=== PATIENT | male | born 1960 | race Two or more races ===

== ENCOUNTER 2017-11-14 22:26 | Inpatient (IN) | payer MEDICAID ==
[~2017-11-14] VITALS: Ht 162.6 cm; Wt 58.1 kg
[2017-11-14] MEDS ORDERED: FURO20TA3 PO (23:15)
[2017-11-14] MEDS ORDERED: PANT40TA5 PO (23:15)
[2017-11-14] MEDS ORDERED: CARV3.1212 PO (23:15)
[2017-11-14] MEDS ORDERED: lisinopril PO (23:15)
[2017-11-14 23:48] LABS: BASOPHILS # (AUTO) 0.01 x10^3/uL (0-0.1); BASOPHILS % (AUTO) 0 % (0-1); EOSINOPHILS # (AUTO) 0.06 x10^3/uL (0-0.4); EOSINOPHILS % (AUTO) 1 % (1-7); LYMPHOCYTES # (AUTO) 0.88 x10^3/uL (1-3.4); LYMPHOCYTES % (AUTO) 14 % (22-44); MD NO; MEAN CORPUSCULAR HEMOGLOBIN 28.2 pg (27.5-34.5); MEAN CORPUSCULAR HGB CONC 32.5 g/dL (33.2-36.2); MEAN CORPUSCULAR VOLUME 86.5 fL (81-97); MEAN PLATELET VOLUME 7.9 fL (7.4-10.4); MONOCYTES # (AUTO) 0.45 x10^3/uL (0.2-0.8); MONOCYTES % (AUTO) 7 % (2-9); NEUTROPHILS # (AUTO) 4.77 x10^3/uL (1.8-6.8); NEUTROPHILS % (AUTO) 77 % (42-75); PLATELET COUNT 158 x10^3/uL (130-400); RED BLOOD COUNT 4.51 x10^6/uL (4.38-5.82); RED CELL DISTRIBUTION WIDTH 18.3 % (9.4-14.8)
[2017-11-14 23:58] LABS: INTERNATIONAL NORMALIZED RATIO 1.32 (0.93-1.1); PROTHROMBIN TIME 13.7 Seconds (9.6-11.5)
[2017-11-14 23:59] LABS: ALANINE AMINOTRANSFERASE 28 U/L (12-78); ALBUMIN 3.6 g/dL (3.4-5.0); ANION GAP 7 mmol/L (5-15); CALCIUM 8.7 mg/dL (8.5-10.1); CHLORIDE 107 mmol/L (98-107); CREATININE 0.95 mg/dL (0.7-1.3)
[2017-11-15 00:03] LABS: ALKALINE PHOSPHATASE 110 U/L (45-117); BILIRUBIN,TOTAL 2.2 mg/dL (0.2-1.0); T4 (THYROXINE) 7.8 mcg/dL (4.5-12.1); TOTAL PROTEIN 6.7 g/dL (6.4-8.2)
[2017-11-15 00:06] LABS: TROPONIN I 0.471 ng/mL (0.000-0.045)
[2017-11-15] MEDS ORDERED: ASPIRIN 325 MG TABLET PO ONE (00:30)
[2017-11-15] MEDS ORDERED: ASPIRIN 325 MG TABLET ONE (00:38)
[2017-11-15] MEDS ORDERED: FUROSEMIDE 20 MG/2 ML IV ONE (01:00)
[2017-11-15] MEDS ORDERED: FUROSEMIDE 20 MG/2 ML ONE (01:26)
[2017-11-15] MEDS ORDERED: POLYETHYLENE GLYCOL 17 GM PACKET PO PRN (02:30)
[2017-11-15] MEDS ORDERED: BISACODYL 10 MG SUPP PR PRN (02:30)
[2017-11-15] MEDS ORDERED: LABETALOL 5MG/ML, 20ML IVPush PRN (02:30)
[2017-11-15] MEDS ORDERED: GABAPENTIN 300 MG CAPSULE PO PRN (02:30)
[2017-11-15] MEDS ORDERED: hydrALAzine 20 MG/ML, 1ML IVPush PRN (02:30)
[2017-11-15] MEDS ORDERED: ACETAMINOPHEN 325 MG TABLET PO PRN (02:30)
[2017-11-15] MEDS ORDERED: NITROGLYCERIN 0.4 MG BOTTLE (25 TABS) SL PRN (02:30)
[2017-11-15] MEDS ORDERED: FUROSEMIDE 20 MG/2 ML IV SCH (02:30)
[2017-11-15] MEDS ORDERED: DOCUSATE 100 MG CAPSULE PO PRN (02:30)
[2017-11-15 02:31] VITALS: BP 113/74
[2017-11-15 02:46] LABS: HEMOGLOBIN A1C 6.4 % (4.2-6.3)
[2017-11-15 02:59] LABS: FREE T4 (FREE THYROXINE) 1.19 ng/dL (0.76-1.46)
[2017-11-15] MEDS: HEPARIN 5,000 UNITS/ML, 1ML SQ SCH ×3 (03:27→17:22)
[2017-11-15] MEDS: NICOTINE 7 MG/24 HR PATCH.TD24 TD SCH (03:27)
[2017-11-15] MEDS ORDERED: ALBUTEROL SULFATE 2.5 MG/3 ML NPPB PRN (05:30)
[2017-11-15] MEDS: ASPIRIN 325 MG TABLET EC PO SCH (05:44)
[2017-11-15 05:48] LABS: TROPONIN I 0.432 ng/mL (0.000-0.045)
[2017-11-15 07:12] VITALS: BP 109/69
[2017-11-15] MEDS ORDERED: MAGNESIUM SULFATE PMX 2GM/50ML 50 ML IV ONE (08:00)
[2017-11-15] MEDS: FLUTICASONE/VILANTEROL 200-25MCG/INH INH SCH (09:00)
[2017-11-15] MEDS ORDERED: LISINOPRIL 5 MG TABLET PO SCH (09:00)
[2017-11-15] MEDS: FUROSEMIDE 20 MG/2 ML IV SCH ×2 (09:25→17:22)
[2017-11-15] MEDS: PANTOPROZOLE 40MG TABLET PO SCH (09:25)
[2017-11-15] MEDS: CARVEDILOL 3.125 MG TABLET PO SCH ×2 (09:26→21:01)
[2017-11-15] MEDS ORDERED: POTASSIUM CHLORIDE 20 MEQ TAB.ER.PRT PO ONE (11:00)
[2017-11-15 11:28] LABS: TROPONIN I 0.468 ng/mL (0.000-0.045)
[2017-11-15 19:06] VITALS: BP 103/77
[2017-11-15] MEDS ORDERED: ATORVASTATIN 40 MG TABLET PO SCH (21:00)
[2017-11-15] MEDS: LISINOPRIL 5 MG TABLET PO SCH (21:00)
[2017-11-16 02:05] VITALS: BP 105/66
[2017-11-16] MEDS: HEPARIN 5,000 UNITS/ML, 1ML SQ SCH ×2 (03:08→10:13)
[2017-11-16] MEDS: NICOTINE 7 MG/24 HR PATCH.TD24 TD SCH (03:09)
[2017-11-16 05:09] LABS: BASOPHILS # (AUTO) 0.04 x10^3/uL (0-0.1); BASOPHILS % (AUTO) 1 % (0-1); EOSINOPHILS # (AUTO) 0.09 x10^3/uL (0-0.4); EOSINOPHILS % (AUTO) 3 % (1-7); LYMPHOCYTES # (AUTO) 0.93 x10^3/uL (1-3.4); LYMPHOCYTES % (AUTO) 25 % (22-44); MD NO; MEAN CORPUSCULAR HEMOGLOBIN 27.5 pg (27.5-34.5); MEAN CORPUSCULAR HGB CONC 32.1 g/dL (33.2-36.2); MEAN CORPUSCULAR VOLUME 85.6 fL (81-97); MEAN PLATELET VOLUME 8.3 fL (7.4-10.4); MONOCYTES # (AUTO) 0.25 x10^3/uL (0.2-0.8); MONOCYTES % (AUTO) 7 % (2-9); NEUTROPHILS # (AUTO) 2.45 x10^3/uL (1.8-6.8); NEUTROPHILS % (AUTO) 65 % (42-75); PLATELET COUNT 154 x10^3/uL (130-400); RED BLOOD COUNT 4.62 x10^6/uL (4.38-5.82); RED CELL DISTRIBUTION WIDTH 18.5 % (9.4-14.8)
[2017-11-16 05:11] LABS: ALBUMIN 3.4 g/dL (3.4-5.0); ANION GAP 8 mmol/L (5-15); CALCIUM 8.6 mg/dL (8.5-10.1); CHLORIDE 104 mmol/L (98-107)
[2017-11-16 05:14] LABS: ALANINE AMINOTRANSFERASE 26 U/L (12-78); ALKALINE PHOSPHATASE 110 U/L (45-117); BILIRUBIN,TOTAL 1.5 mg/dL (0.2-1.0); CHOL/HDL RATIO 5.3; CHOLESTEROL, TOTAL 117 mg/dL (140-239); CREATININE 0.89 mg/dL (0.7-1.3); HDL CHOL % 19 % (26-37); HDL CHOLESTEROL (DIRECT) 22 mg/dL (40-60); LDL CHOLESTEROL,CALCULATED 82 mg/dL (54-169); LDL/HDL RATIO 3.7 (0.5-3.0); TOTAL PROTEIN 6.7 g/dL (6.4-8.2); TRIGLYCERIDES 65 mg/dL (50-200); VLDL CHOLESTEROL 13 mg/dL (0-25)
[2017-11-16] MEDS: ASPIRIN 325 MG TABLET EC PO SCH (06:19)
[2017-11-16 07:27] VITALS: BP 99/66
[2017-11-16] MEDS: FLUTICASONE/VILANTEROL 200-25MCG/INH INH SCH (09:00)
[2017-11-16] MEDS: LISINOPRIL 5 MG TABLET PO SCH (10:13)
[2017-11-16] MEDS: FUROSEMIDE 20 MG/2 ML IV SCH (10:13)
[2017-11-16] MEDS: PANTOPROZOLE 40MG TABLET PO SCH (10:13)
[2017-11-16] MEDS: CARVEDILOL 3.125 MG TABLET PO SCH (10:13)
== END 2017-11-16 11:16 | disposition left against medical advice (07) | DRG 292 ==
LOC: ED 23:31 → EDIP 11-15 01:32 → 5SO 11-15 02:13
PROVIDERS: ADMIT Internal Medicine; ATTEND Internal Medicine
DX: I11.0 Hypertensive heart disease with heart failure (principal); J96.10 Chronic respiratory failure, unspecified whether with hypoxia or hypercapnia; E78.5 Hyperlipidemia, unspecified; I50.23 Acute on chronic systolic (congestive) heart failure; E87.6 Hypokalemia; F17.210 Nicotine dependence, cigarettes, uncomplicated; I25.10 Atherosclerotic heart disease of native coronary artery without angina pectoris; M54.9 Dorsalgia, unspecified; I25.5 Ischemic cardiomyopathy; J44.9 Chronic obstructive pulmonary disease, unspecified; K21.9 Gastro-esophageal reflux disease without esophagitis; K80.20 Calculus of gallbladder without cholecystitis without obstruction; Z51.5 Encounter for palliative care; Z79.82 Long term (current) use of aspirin; Z82.49 Family history of ischemic heart disease and other diseases of the circulatory system; Z95.1 Presence of aortocoronary bypass graft; I25.2 Old myocardial infarction; Z95.5 Presence of coronary angioplasty implant and graft; Z95.810 Presence of automatic (implantable) cardiac defibrillator; Z99.81 Dependence on supplemental oxygen; Z79.899 Other long term (current) drug therapy
CPT/HCPCS: 36415; 72072; 72110; J7613; 70450; 71045; 71260; 76700; 80053; 80061; 83036; 83735; 83880; 84436; 84439; 84443; 84484; 85025; 85610; 85730; 93005; 94640; 96374; C8929; G0378; J1644; J1940; J3475

== ENCOUNTER 2017-11-16 17:13 | Inpatient (IN) | payer MEDICAID ==
[~2017-11-16] VITALS: Ht 162.6 cm; Wt 60.7 kg
[~2017-11-16 17:13] MED LIST: CARV3.1212 PO; FURO20TA3 PO; PANT40TA5 PO; lisinopril PO
[2017-11-16] MEDS ORDERED: ASPIRIN 81 MG TABLET CHEW PO ONE (17:30)
[2017-11-16] MEDS ORDERED: SODIUM CHLORIDE 0.9% 1,000ML IVBOLUS ONE (17:30)
[2017-11-16] MEDS ORDERED: ASPIRIN 81 MG TABLET CHEW ONE (17:55)
[2017-11-16 18:11] LABS: ALBUMIN 3.8 g/dL (3.4-5.0); ANION GAP 8 mmol/L (5-15); CALCIUM 9.1 mg/dL (8.5-10.1); CHLORIDE 101 mmol/L (98-107)
[2017-11-16 18:13] LABS: BASOPHILS # (AUTO) 0.03 x10^3/uL (0-0.1); BASOPHILS % (AUTO) 1 % (0-1); EOSINOPHILS # (AUTO) 0.06 x10^3/uL (0-0.4); EOSINOPHILS % (AUTO) 1 % (1-7); LYMPHOCYTES # (AUTO) 0.62 x10^3/uL (1-3.4); LYMPHOCYTES % (AUTO) 13 % (22-44); MD NO; MEAN CORPUSCULAR HGB CONC 32.2 g/dL (33.2-36.2); MEAN CORPUSCULAR VOLUME 86.8 fL (81-97); MEAN PLATELET VOLUME 8.2 fL (7.4-10.4); MONOCYTES # (AUTO) 0.31 x10^3/uL (0.2-0.8); MONOCYTES % (AUTO) 6 % (2-9); NEUTROPHILS # (AUTO) 3.91 x10^3/uL (1.8-6.8); NEUTROPHILS % (AUTO) 79 % (42-75); PLATELET COUNT 168 x10^3/uL (130-400); RED BLOOD COUNT 4.77 x10^6/uL (4.38-5.82); RED CELL DISTRIBUTION WIDTH 18.4 % (9.4-14.8)
[2017-11-16 18:16] LABS: CREATININE 1.15 mg/dL (0.7-1.3)
[2017-11-16 18:22] LABS: TROPONIN I 0.453 ng/mL (0.000-0.045)
[2017-11-16] MEDS ORDERED: LIDODERM 5% PATCH TD PRN (21:00)
[2017-11-16] MEDS ORDERED: NITROGLYCERIN 0.4 MG BOTTLE (25 TABS) SL PRN (21:00)
[2017-11-16] MEDS ORDERED: ACETAMINOPHEN 325 MG TABLET PO PRN (21:00)
[2017-11-16] MEDS ORDERED: TEMAZEPAM 15 MG CAPSULE PO PRN (21:00)
[2017-11-16] MEDS ORDERED: hydrALAzine 20 MG/ML, 1ML IVPush PRN (21:00)
[2017-11-16 21:56] VITALS: BP 115/80
[2017-11-16] MEDS: POTASSIUM CHLORIDE 20 MEQ TAB.ER.PRT PO SCH (22:54)
[2017-11-16] MEDS: FUROSEMIDE 20 MG TABLET PO SCH (22:54)
[2017-11-16] MEDS: CARVEDILOL 3.125 MG TABLET PO SCH (22:55)
[2017-11-17 00:58] VITALS: BP 113/53
[2017-11-17 01:15] LABS: TROPONIN I 0.432 ng/mL (0.000-0.045)
[2017-11-17 05:05] LABS: BASOPHILS # (AUTO) 0.02 x10^3/uL (0-0.1); BASOPHILS % (AUTO) 1 % (0-1); EOSINOPHILS # (AUTO) 0.08 x10^3/uL (0-0.4); EOSINOPHILS % (AUTO) 2 % (1-7); LYMPHOCYTES # (AUTO) 0.81 x10^3/uL (1-3.4); LYMPHOCYTES % (AUTO) 20 % (22-44); MD NO; MEAN CORPUSCULAR HEMOGLOBIN 27.6 pg (27.5-34.5); MEAN CORPUSCULAR HGB CONC 32.4 g/dL (33.2-36.2); MEAN CORPUSCULAR VOLUME 85.3 fL (81-97); MEAN PLATELET VOLUME 8.4 fL (7.4-10.4); MONOCYTES # (AUTO) 0.31 x10^3/uL (0.2-0.8); MONOCYTES % (AUTO) 8 % (2-9); NEUTROPHILS # (AUTO) 2.88 x10^3/uL (1.8-6.8); NEUTROPHILS % (AUTO) 70 % (42-75); PLATELET COUNT 142 x10^3/uL (130-400); RED BLOOD COUNT 4.48 x10^6/uL (4.38-5.82)
[2017-11-17 05:09] LABS: ANION GAP 6 mmol/L (5-15); CALCIUM 8.2 mg/dL (8.5-10.1); CHLORIDE 108 mmol/L (98-107)
[2017-11-17 06:49] VITALS: BP 101/65
[2017-11-17] MEDS: CARVEDILOL 3.125 MG TABLET PO SCH ×2 (09:00→20:09)
[2017-11-17] MEDS ORDERED: LISINOPRIL 5 MG TABLET PO SCH (09:00)
[2017-11-17] MEDS: FUROSEMIDE 20 MG TABLET PO SCH ×2 (09:00→20:09)
[2017-11-17] MEDS: PANTOPROZOLE 40MG TABLET PO SCH (09:24)
[2017-11-17] MEDS: KETOROLAC 30 MG/1 ML IV PRN ×2 (09:30→20:09)
[2017-11-17 09:32] VITALS: BP 97/66
[2017-11-17] MEDS: POTASSIUM CHLORIDE 20 MEQ TAB.ER.PRT PO SCH (09:32)
[2017-11-17 12:34] VITALS: BP 98/67
[2017-11-17 19:11] VITALS: BP 111/78
[2017-11-17 20:04] VITALS: BP 107/72
[2017-11-18 02:12] VITALS: BP 114/76
[2017-11-18 06:30] VITALS: BP 113/80
[2017-11-18] MEDS: POTASSIUM CHLORIDE 20 MEQ TAB.ER.PRT PO SCH (08:00)
[2017-11-18] MEDS ORDERED: LISINOPRIL 5 MG TABLET PO SCH (09:00)
[2017-11-18] MEDS: CARVEDILOL 3.125 MG TABLET PO SCH (09:09)
[2017-11-18] MEDS: FUROSEMIDE 20 MG TABLET PO SCH (09:09)
[2017-11-18] MEDS: PANTOPROZOLE 40MG TABLET PO SCH (09:09)
[2017-11-18] MEDS: KETOROLAC 30 MG/1 ML IV PRN (10:44)
[2017-11-18] MEDS ORDERED: POTA20TA6 PO (12:49)
[2017-11-18] MEDS ORDERED: LISI5TAB7 PO (12:49)
[2017-11-18] MEDS ORDERED: FURO20TA3 PO (12:49)
[2017-11-18] MEDS ORDERED: CARV3.1212 PO (12:49)
[2017-11-18] MEDS ORDERED: PANT40TA5 PO (12:49)
== END 2017-11-18 17:47 | disposition home or self-care (01) | DRG 292 ==
LOC: SUATTDRO 20:03 → ED 20:04 → EDIP 20:54 → 5SO 22:04
PROVIDERS: ADMIT Hospitalist; ATTEND Family Medicine
DX: I11.0 Hypertensive heart disease with heart failure (principal); I24.8 Other forms of acute ischemic heart disease; I50.23 Acute on chronic systolic (congestive) heart failure; K21.9 Gastro-esophageal reflux disease without esophagitis; J44.9 Chronic obstructive pulmonary disease, unspecified; I25.5 Ischemic cardiomyopathy; F41.9 Anxiety disorder, unspecified; I34.0 Nonrheumatic mitral (valve) insufficiency; Z59.0 Homelessness; Z95.810 Presence of automatic (implantable) cardiac defibrillator; Z95.1 Presence of aortocoronary bypass graft; Z89.9 Acquired absence of limb, unspecified; Z79.82 Long term (current) use of aspirin; I25.2 Old myocardial infarction
CPT/HCPCS: 36415; 71045; 80048; 82040; 83880; 84484; 85025; 93005; 99285; G0378; J1885; J7030

== ENCOUNTER 2017-11-19 16:22 | Inpatient (IN) | payer MEDICAID ==
[~2017-11-19] VITALS: Ht 162.6 cm; Wt 54.4 kg
[~2017-11-19 16:22] MED LIST changes: +LISI5TAB7 PO; +POTA20TA6 PO
[2017-11-19] MEDS ORDERED: SODIUM CHLORIDE FLUSH 10ML SYR IVF ONE (16:30)
[2017-11-19 17:13] LABS: BASOPHILS # (AUTO) 0.02 x10^3/uL (0-0.1); BASOPHILS % (AUTO) 1 % (0-1); EOSINOPHILS # (AUTO) 0.06 x10^3/uL (0-0.4); EOSINOPHILS % (AUTO) 1 % (1-7); LYMPHOCYTES # (AUTO) 0.81 x10^3/uL (1-3.4); LYMPHOCYTES % (AUTO) 21 % (22-44); MD NO; MEAN CORPUSCULAR HEMOGLOBIN 28.3 pg (27.5-34.5); MEAN CORPUSCULAR HGB CONC 32.8 g/dL (33.2-36.2); MEAN CORPUSCULAR VOLUME 86.2 fL (81-97); MEAN PLATELET VOLUME 8.1 fL (7.4-10.4); MONOCYTES # (AUTO) 0.34 x10^3/uL (0.2-0.8); MONOCYTES % (AUTO) 9 % (2-9); NEUTROPHILS # (AUTO) 2.64 x10^3/uL (1.8-6.8); NEUTROPHILS % (AUTO) 68 % (42-75); PLATELET COUNT 159 x10^3/uL (130-400); RED BLOOD COUNT 4.37 x10^6/uL (4.38-5.82); RED CELL DISTRIBUTION WIDTH 17.7 % (9.4-14.8)
[2017-11-19 17:21] LABS: ALBUMIN 3.5 g/dL (3.4-5.0); ANION GAP 10 mmol/L (5-15); CALCIUM 8.7 mg/dL (8.5-10.1); CHLORIDE 108 mmol/L (98-107); CREATININE 0.93 mg/dL (0.7-1.3)
[2017-11-19 17:32] LABS: TROPONIN I 0.428 ng/mL (0.000-0.045)
[2017-11-19] MEDS ORDERED: ASPIRIN 81 MG TABLET CHEW ONE (18:08)
[2017-11-19] MEDS ORDERED: ASPIRIN 81 MG TABLET CHEW PO ONE (18:30)
[2017-11-19] MEDS ORDERED: NITROGLYCERIN 0.4 MG BOTTLE (25 TABS) SL PRN (19:00)
[2017-11-19] MEDS ORDERED: POLYETHYLENE GLYCOL 17 GM PACKET PO PRN (19:00)
[2017-11-19] MEDS ORDERED: BISACODYL 10 MG SUPP PR PRN (19:00)
[2017-11-19] MEDS ORDERED: ONDANSETRON ODT 4 MG PO PRN (19:00)
[2017-11-19 20:05] VITALS: BP 135/93
[2017-11-19] MEDS: FUROSEMIDE 20 MG/2 ML IV SCH (20:28)
[2017-11-19] MEDS: SODIUM CHLORIDE FLUSH 10ML SYR IVF SCH (20:29)
[2017-11-19] MEDS: HEPARIN 5,000 UNITS/ML, 1ML SQ SCH (20:32)
[2017-11-19] MEDS: ATORVASTATIN 40 MG TABLET PO SCH (20:34)
[2017-11-19] MEDS: CARVEDILOL 3.125 MG TABLET PO SCH (20:34)
[2017-11-19] MEDS: NICOTINE 21 MG/24 HR PATCH.TD24 TD SCH (20:35)
[2017-11-19] MEDS: morphine SULFATE 10 MG/ML, 1ML IVPush PRN (20:38)
[2017-11-19] MEDS ORDERED: ALBUTEROL SULFATE 2.5 MG/3 ML NPPB PRN (21:30)
[2017-11-19 23:37] LABS: TROPONIN I 0.448 ng/mL (0.000-0.045)
[2017-11-20 00:19] VITALS: BP 103/69
[2017-11-20] MEDS: HEPARIN 5,000 UNITS/ML, 1ML SQ SCH ×3 (04:20→17:34)
[2017-11-20] MEDS: ASPIRIN 81 MG TABLET EC PO SCH (05:38)
[2017-11-20 05:43] LABS: BASOPHILS # (AUTO) 0.02 x10^3/uL (0-0.1); BASOPHILS % (AUTO) 1 % (0-1); EOSINOPHILS # (AUTO) 0.07 x10^3/uL (0-0.4); EOSINOPHILS % (AUTO) 2 % (1-7); LYMPHOCYTES # (AUTO) 0.79 x10^3/uL (1-3.4); LYMPHOCYTES % (AUTO) 20 % (22-44); MD NO; MEAN CORPUSCULAR HEMOGLOBIN 28.3 pg (27.5-34.5); MEAN CORPUSCULAR HGB CONC 32.8 g/dL (33.2-36.2); MEAN CORPUSCULAR VOLUME 86.5 fL (81-97); MEAN PLATELET VOLUME 8.6 fL (7.4-10.4); MONOCYTES % (AUTO) 8 % (2-9); NEUTROPHILS # (AUTO) 2.85 x10^3/uL (1.8-6.8); NEUTROPHILS % (AUTO) 71 % (42-75); PLATELET COUNT 155 x10^3/uL (130-400); RED BLOOD COUNT 4.32 x10^6/uL (4.38-5.82); RED CELL DISTRIBUTION WIDTH 17.7 % (9.4-14.8)
[2017-11-20 05:48] LABS: ALANINE AMINOTRANSFERASE 24 U/L (12-78); ALBUMIN 3.4 g/dL (3.4-5.0); ANION GAP 9 mmol/L (5-15); CALCIUM 8.7 mg/dL (8.5-10.1); CHLORIDE 103 mmol/L (98-107); CREATININE 0.86 mg/dL (0.7-1.3)
[2017-11-20 05:52] LABS: ALKALINE PHOSPHATASE 102 U/L (45-117); BILIRUBIN,TOTAL 2.1 mg/dL (0.2-1.0); TOTAL PROTEIN 6.3 g/dL (6.4-8.2); TROPONIN I 0.394 ng/mL (0.000-0.045)
[2017-11-20] MEDS: CARVEDILOL 3.125 MG TABLET PO SCH ×2 (07:49→20:52)
[2017-11-20] MEDS: FUROSEMIDE 20 MG/2 ML IV SCH (07:49)
[2017-11-20] MEDS: LISINOPRIL 5 MG TABLET PO SCH (07:49)
[2017-11-20] MEDS: PANTOPROZOLE 40MG TABLET PO SCH (07:49)
[2017-11-20] MEDS: POTASSIUM CHLORIDE 20 MEQ TAB.ER.PRT PO SCH (07:49)
[2017-11-20] MEDS: SENNA/DOCUSATE TABLET PO SCH (07:50)
[2017-11-20] MEDS: SODIUM CHLORIDE FLUSH 10ML SYR IVF SCH ×2 (07:50→20:52)
[2017-11-20 08:42] VITALS: BP 110/77
[2017-11-20 13:20] VITALS: BP 99/62
[2017-11-20] MEDS: FUROSEMIDE 20 MG TABLET PO SCH (16:08)
[2017-11-20 16:10] VITALS: BP 106/73
[2017-11-20] MEDS: ACETAMINOPHEN 325 MG TABLET PO PRN ×2 (16:10→21:00)
[2017-11-20] MEDS: NICOTINE 21 MG/24 HR PATCH.TD24 TD SCH (17:37)
[2017-11-20 20:01] VITALS: BP 94/62
[2017-11-20] MEDS: ATORVASTATIN 40 MG TABLET PO SCH (20:52)
[2017-11-21 02:53] VITALS: BP 100/66
[2017-11-21] MEDS: HEPARIN 5,000 UNITS/ML, 1ML SQ SCH ×3 (03:27→17:50)
[2017-11-21] MEDS: ASPIRIN 81 MG TABLET EC PO SCH (05:48)
[2017-11-21 08:21] VITALS: BP 113/79
[2017-11-21] MEDS: POTASSIUM CHLORIDE 20 MEQ TAB.ER.PRT PO SCH (08:49)
[2017-11-21] MEDS: CARVEDILOL 3.125 MG TABLET PO SCH ×2 (08:50→19:59)
[2017-11-21] MEDS: SODIUM CHLORIDE FLUSH 10ML SYR IVF SCH ×2 (08:50→19:59)
[2017-11-21] MEDS: SENNA/DOCUSATE TABLET PO SCH (08:50)
[2017-11-21] MEDS: LISINOPRIL 5 MG TABLET PO SCH (08:50)
[2017-11-21] MEDS: PANTOPROZOLE 40MG TABLET PO SCH (08:50)
[2017-11-21] MEDS: FUROSEMIDE 20 MG TABLET PO SCH ×2 (08:50→17:50)
[2017-11-21] MEDS: morphine SULFATE 10 MG/ML, 1ML IVPush PRN (08:59)
[2017-11-21 15:06] VITALS: BP 96/60
[2017-11-21] MEDS: NICOTINE 21 MG/24 HR PATCH.TD24 TD SCH (17:50)
[2017-11-21 18:59] VITALS: BP 104/61
[2017-11-21] MEDS: ATORVASTATIN 40 MG TABLET PO SCH (19:59)
[2017-11-21] MEDS ORDERED: METHOCARBAMOL 500 MG TABLET PO ONE (20:30)
[2017-11-22] VITALS (8 sets, daily range): BP systolic 93–115; BP diastolic 60–79
[2017-11-22] MEDS: ACETAMINOPHEN 325 MG TABLET PO PRN (02:20)
[2017-11-22] MEDS: HEPARIN 5,000 UNITS/ML, 1ML SQ SCH ×3 (02:26→19:49)
[2017-11-22] MEDS: ASPIRIN 81 MG TABLET EC PO SCH (06:22)
[2017-11-22] MEDS: LISINOPRIL 5 MG TABLET PO SCH (09:26)
[2017-11-22] MEDS: SENNA/DOCUSATE TABLET PO SCH (09:27)
[2017-11-22] MEDS: CARVEDILOL 3.125 MG TABLET PO SCH ×2 (09:27→19:51)
[2017-11-22] MEDS: PANTOPROZOLE 40MG TABLET PO SCH (09:28)
[2017-11-22] MEDS: SODIUM CHLORIDE FLUSH 10ML SYR IVF SCH ×2 (09:28→19:49)
[2017-11-22] MEDS: POTASSIUM CHLORIDE 20 MEQ TAB.ER.PRT PO SCH (09:28)
[2017-11-22] MEDS: FUROSEMIDE 20 MG TABLET PO SCH ×2 (09:28→17:58)
[2017-11-22] MEDS ORDERED: HYDROcodone/APAP 5/325 TABLET PO PRN ×2 (10:00→12:00)
[2017-11-22] MEDS: NICOTINE 21 MG/24 HR PATCH.TD24 TD SCH (19:48)
[2017-11-22] MEDS: ATORVASTATIN 40 MG TABLET PO SCH (19:51)
[2017-11-23 02:00] VITALS: BP 98/65
[2017-11-23] MEDS: HEPARIN 5,000 UNITS/ML, 1ML SQ SCH ×2 (04:16→12:15)
[2017-11-23] MEDS: ASPIRIN 81 MG TABLET EC PO SCH (05:21)
[2017-11-23 07:12] VITALS: BP 93/63
[2017-11-23 09:02] VITALS: BP 97/61
[2017-11-23 09:37] VITALS: BP 102/67
[2017-11-23] MEDS: POTASSIUM CHLORIDE 20 MEQ TAB.ER.PRT PO SCH (09:37)
[2017-11-23] MEDS: CARVEDILOL 3.125 MG TABLET PO SCH (09:38)
[2017-11-23] MEDS: LISINOPRIL 5 MG TABLET PO SCH (09:38)
[2017-11-23] MEDS: SODIUM CHLORIDE FLUSH 10ML SYR IVF SCH (09:38)
[2017-11-23] MEDS: FUROSEMIDE 20 MG TABLET PO SCH ×2 (09:38→17:33)
[2017-11-23] MEDS: SENNA/DOCUSATE TABLET PO SCH (09:39)
[2017-11-23] MEDS: PANTOPROZOLE 40MG TABLET PO SCH (09:39)
[2017-11-23 13:13] VITALS: BP 104/64
[2017-11-23] MEDS ORDERED: CARV3.1212 PO (15:25)
[2017-11-23] MEDS ORDERED: ATOR40TA78 PO (15:25)
[2017-11-23] MEDS ORDERED: PANT40TA5 PO (15:25)
[2017-11-23] MEDS ORDERED: FURO20TA3 PO (15:25)
[2017-11-23] MEDS ORDERED: POTA20TA6 PO (15:25)
[2017-11-23] MEDS ORDERED: LISI5TAB7 PO (15:25)
[2017-11-23] MEDS ORDERED: ASPI-621 PO (15:25)
== END 2017-11-23 18:47 | disposition home or self-care (01) | DRG 280 ==
LOC: ED 18:00 → EDIP 18:01 → ED 18:01 → 5SO 19:56
PROVIDERS: ADMIT Internal Medicine; ATTEND Internal Medicine
DX: I21.4 Non-ST elevation (NSTEMI) myocardial infarction (principal); I50.23 Acute on chronic systolic (congestive) heart failure; J96.10 Chronic respiratory failure, unspecified whether with hypoxia or hypercapnia; D64.9 Anemia, unspecified; F17.210 Nicotine dependence, cigarettes, uncomplicated; I11.0 Hypertensive heart disease with heart failure; I25.5 Ischemic cardiomyopathy; I44.7 Left bundle-branch block, unspecified; J44.9 Chronic obstructive pulmonary disease, unspecified; K21.9 Gastro-esophageal reflux disease without esophagitis; Z82.49 Family history of ischemic heart disease and other diseases of the circulatory system; Z91.19 Patient's noncompliance with other medical treatment and regimen; Z95.1 Presence of aortocoronary bypass graft; Z95.5 Presence of coronary angioplasty implant and graft; Z95.810 Presence of automatic (implantable) cardiac defibrillator; Z89.202 Acquired absence of left upper limb, unspecified level; Z79.899 Other long term (current) drug therapy
CPT/HCPCS: 36415; 71045; 80048; 80053; 82040; 83880; 84484; 85025; 93005; 99285; G0378; J1644; J1940; J2270

== ENCOUNTER 2017-12-15 17:52 | Inpatient (IN) | payer MEDICAID ==
[~2017-12-15] VITALS: Ht 162.6 cm; Wt 60.5 kg
[~2017-12-15 17:52] MED LIST changes: +ASPI-621 PO; +ATOR40TA78 PO
[2017-12-15 18:25] LABS: BASOPHILS % (AUTO) 0 % (0-1); EOSINOPHILS # (AUTO) 0.01 x10^3/uL (0-0.4); EOSINOPHILS % (AUTO) 0 % (1-7); LYMPHOCYTES # (AUTO) 0.35 x10^3/uL (1-3.4); LYMPHOCYTES % (AUTO) 3 % (22-44); MD NO; MEAN CORPUSCULAR HEMOGLOBIN 28.4 pg (27.5-34.5); MEAN CORPUSCULAR HGB CONC 32.6 g/dL (33.2-36.2); MEAN CORPUSCULAR VOLUME 87.3 fL (81-97); MEAN PLATELET VOLUME 8.1 fL (7.4-10.4); MONOCYTES # (AUTO) 0.54 x10^3/uL (0.2-0.8); MONOCYTES % (AUTO) 4 % (2-9); NEUTROPHILS # (AUTO) 12.51 x10^3/uL (1.8-6.8); NEUTROPHILS % (AUTO) 93 % (42-75); PLATELET COUNT 160 x10^3/uL (130-400); RED BLOOD COUNT 4.83 x10^6/uL (4.38-5.82)
[2017-12-15] MEDS ORDERED: PLEASE ENTER HEIGHT AND WEIGHT MC SCH (18:30)
[2017-12-15] MEDS ORDERED: SODIUM CHLORIDE FLUSH 10ML SYR IVF ONE ×3 (18:30→20:30)
[2017-12-15 18:35] LABS: ALANINE AMINOTRANSFERASE 37 U/L (12-78); ALBUMIN 3.7 g/dL (3.4-5.0); ANION GAP 7 mmol/L (5-15); CALCIUM 8.1 mg/dL (8.5-10.1); CHLORIDE 102 mmol/L (98-107); CREATININE 1.13 mg/dL (0.7-1.3)
[2017-12-15 18:40] LABS: ALKALINE PHOSPHATASE 115 U/L (45-117); TOTAL PROTEIN 6.7 g/dL (6.4-8.2)
[2017-12-15 18:42] LABS: TROPONIN I 0.415 ng/mL (0.000-0.045)
[2017-12-15] MEDS ORDERED: HYDROcodone/APAP 5/325 TABLET PO ONE (19:30)
[2017-12-15] MEDS ORDERED: SODIUM CHLORIDE 0.9% 1,000ML IVBOLUS ONE (19:30)
[2017-12-15] MEDS ORDERED: HYDROcodone/APAP 5/325 TABLET ONE (19:38)
[2017-12-15] MEDS ORDERED: METO25TA4 PO (19:47)
[2017-12-15] MEDS ORDERED: OMNIPAQUE 350 MG/ML, 100ML BOTTLE ONE (20:19)
[2017-12-15] MEDS ORDERED: CEFTRIAXONE PMX 1GM/50ML 50 ML IV ONE (20:30)
[2017-12-15] MEDS ORDERED: CEFTRIAXONE 1,000 MG in SODIUM CHLORIDE 0.9% 50 ML IVPB ONE (20:30)
[2017-12-15] MEDS ORDERED: AZITHROMYCIN 500 MG in SODIUM CHLORIDE 0.9% 250 ML IVPB ONE (20:30)
[2017-12-15] MEDS ORDERED: CEFTRIAXONE PMX 1GM/50ML 50 ML ONE (20:44)
[2017-12-15] MEDS ORDERED: SODIUM CHLORIDE 0.9% 1,000 ML IV SCH (21:48)
[2017-12-15 21:59] VITALS: BP 92/62
[2017-12-15] MEDS ORDERED: VANCOMYCIN PER PHARMACY MC PRN (22:00)
[2017-12-15] MEDS ORDERED: ONDANSETRON 2MG/ML, 2ML IVPush PRN (22:00)
[2017-12-15] MEDS ORDERED: ONDANSETRON ODT 4 MG PO PRN (22:00)
[2017-12-15] MEDS ORDERED: BUTALB/APAP/CAFFEINE 50MG/325MG/40MG PO PRN (22:00)
[2017-12-15] MEDS ORDERED: LEVOFLOXACIN/PMX 500MG/100ML 100 ML IV SCH (22:00)
[2017-12-15] MEDS ORDERED: POLYETHYLENE GLYCOL 17 GM PACKET PO PRN (22:00)
[2017-12-15] MEDS ORDERED: PHARMACOKINETIC CONSULTATION MC ONE (22:30)
[2017-12-15] MEDS ORDERED: PHARMACOKINETIC MONITORING MC PRN (22:30)
[2017-12-15] MEDS: SODIUM CHLORIDE 0.9% 1,000 ML IV SCH (22:50)
[2017-12-15] MEDS: ENOXAPARIN 40 MG/0.4 ML SQ SCH (22:57)
[2017-12-15] MEDS: ATORVASTATIN 40 MG TABLET PO SCH (22:57)
[2017-12-16] MEDS: VANCOMYCIN 1,200 MG in SODIUM CHLORIDE 0.9% 250 ML IV SCH ×2 (00:14→18:05)
[2017-12-16 00:26] VITALS: BP 100/60
[2017-12-16 03:50] LABS: MICROSCOPIC AUTO
[2017-12-16 03:54] LABS: CULTURE INDICATED? NO
[2017-12-16 03:59] LABS: AMPHETAMINE SCREEN, URINE Negative (Negative); BARBITURATE SCREEN, URINE Negative (Negative); BENZODIAZEPINE SCREEN, URINE Negative (Negative); CANNABINOID SCREEN, URINE Negative (Negative); COCAINE SCREEN, URINE Negative (Negative); METHADONE SCREEN, URINE Negative (Negative); OPIATE SCREEN, URINE Positive (Negative)
[2017-12-16] MEDS: ASPIRIN 81 MG TABLET EC PO SCH (05:12)
[2017-12-16 05:23] LABS: MEAN CORPUSCULAR HEMOGLOBIN 28.8 pg (27.5-34.5); MEAN CORPUSCULAR HGB CONC 32.8 g/dL (33.2-36.2); MEAN CORPUSCULAR VOLUME 87.7 fL (81-97); MEAN PLATELET VOLUME 8.4 fL (7.4-10.4); PLATELET COUNT 126 x10^3/uL (130-400); RED BLOOD COUNT 4.35 x10^6/uL (4.38-5.82); RED CELL DISTRIBUTION WIDTH 18.3 % (9.4-14.8)
[2017-12-16 05:27] LABS: ANION GAP 10 mmol/L (5-15); CALCIUM 7.6 mg/dL (8.5-10.1); CHLORIDE 106 mmol/L (98-107)
[2017-12-16 05:35] LABS: CREATININE 1.04 mg/dL (0.7-1.3); TROPONIN I 0.352 ng/mL (0.000-0.045)
[2017-12-16 05:41] LABS: THYROID STIMULATING HORMONE 0.268 mIU/L (0.358-3.740)
[2017-12-16 05:57] LABS: MD YES
[2017-12-16 05:59] LABS: BAND#(MANUAL) 1.39 x10^3/uL; BANDS%(MANUAL) 9 % (0-7); LYMPH#(MANUAL) 0.62 x10^3/uL (1-3.4); LYMPHS% (MANUAL) 4 % (22-44); MONOS#(MANUAL) 0.62 x10^3/uL (0.3-2.7); MONOS% (MANUAL) 4 % (2-9); SEG#(MANUAL) 12.78 x10^3/uL (1.8-6.8); SEGS% (MANUAL) 83 % (42-75)
[2017-12-16 06:00] LABS: <PLATELET ESTIMATE> ADEQUATE; <PLT MORPHOLOGY> NORMAL PLT MORPH; ANISOCYTOSIS 1+; OVALOCYTES 1+
[2017-12-16] MEDS: MAGNESIUM SULFATE 4 GM in SODIUM CHLORIDE 0.9% 100 ML IV ONE ×2 (06:21→06:23)
[2017-12-16 07:18] VITALS: BP 94/60
[2017-12-16] MEDS ORDERED: MAGNESIUM SULFATE PMX 4GM/100M 100 ML IV ONE (09:00)
[2017-12-16] MEDS: PANTOPROZOLE 40MG TABLET PO SCH (11:36)
[2017-12-16 14:14] VITALS: BP_SYST 100; BP_SYST 104; BP_SYST 89; BP_DIAS 57; BP_DIAS 70; BP_DIAS 71
[2017-12-16] MEDS ORDERED: POTASSIUM PHOSPHATE 22 MEQ in SODIUM CHLORIDE 0.9% 500 ML IV ONE (15:30)
[2017-12-16] MEDS ORDERED: ALBUTEROL SULFATE 2.5 MG/3 ML ONE (15:43)
[2017-12-16] MEDS ORDERED: ALBUTEROL SULFATE 2.5 MG/3 ML NPPB PRN (16:00)
[2017-12-16] MEDS: PIPERACILLIN/TAZO/PMX 4.5GM 100 ML IV SCH ×2 (16:41→22:19)
[2017-12-16 19:47] VITALS: BP 99/70
[2017-12-16] MEDS: ATORVASTATIN 40 MG TABLET PO SCH (21:11)
[2017-12-16] MEDS: ENOXAPARIN 40 MG/0.4 ML SQ SCH (21:12)
[2017-12-17 01:00] VITALS: BP 97/63
[2017-12-17] MEDS: PIPERACILLIN/TAZO/PMX 4.5GM 100 ML IV SCH ×4 (04:30→21:50)
[2017-12-17 05:24] LABS: ANION GAP 9 mmol/L (5-15); CALCIUM 8.1 mg/dL (8.5-10.1); CHLORIDE 108 mmol/L (98-107); CREATININE 1.16 mg/dL (0.7-1.3)
[2017-12-17 05:27] LABS: BASOPHILS # (AUTO) 0.04 x10^3/uL (0-0.1); BASOPHILS % (AUTO) 0 % (0-1); EOSINOPHILS # (AUTO) 0.06 x10^3/uL (0-0.4); EOSINOPHILS % (AUTO) 1 % (1-7); LYMPHOCYTES # (AUTO) 0.71 x10^3/uL (1-3.4); LYMPHOCYTES % (AUTO) 8 % (22-44); MD NO; MEAN CORPUSCULAR HEMOGLOBIN 28.1 pg (27.5-34.5); MEAN CORPUSCULAR HGB CONC 32.3 g/dL (33.2-36.2); MEAN PLATELET VOLUME 8.9 fL (7.4-10.4); MONOCYTES # (AUTO) 0.58 x10^3/uL (0.2-0.8); MONOCYTES % (AUTO) 6 % (2-9); NEUTROPHILS # (AUTO) 7.95 x10^3/uL (1.8-6.8); NEUTROPHILS % (AUTO) 85 % (42-75); PLATELET COUNT 130 x10^3/uL (130-400); RED BLOOD COUNT 4.36 x10^6/uL (4.38-5.82); RED CELL DISTRIBUTION WIDTH 18.5 % (9.4-14.8)
[2017-12-17 05:35] LABS: FREE T4 (FREE THYROXINE) 1.07 ng/dL (0.76-1.46)
[2017-12-17] MEDS: ASPIRIN 81 MG TABLET EC PO SCH (05:54)
[2017-12-17] MEDS: SODIUM CHLORIDE 0.9% 1,000 ML IV SCH (07:32)
[2017-12-17 08:00] VITALS: BP 94/65
[2017-12-17] MEDS: PANTOPROZOLE 40MG TABLET PO SCH (08:15)
[2017-12-17] MEDS: ACETAMINOPHEN 325 MG TABLET PO PRN ×2 (08:15→21:25)
[2017-12-17] MEDS: VANCOMYCIN 1,200 MG in SODIUM CHLORIDE 0.9% 250 ML IV SCH (12:23)
[2017-12-17 13:02] VITALS: BP 92/60
[2017-12-17 17:59] VITALS: BP 101/68
[2017-12-17] MEDS: METOPROLOL TARTRATE 25 MG TABLET PO SCH (18:01)
[2017-12-17 18:42] VITALS: BP 101/70
[2017-12-17] MEDS: ENOXAPARIN 40 MG/0.4 ML SQ SCH (21:25)
[2017-12-17] MEDS: ATORVASTATIN 40 MG TABLET PO SCH (21:25)
[2017-12-18] VITALS (7 sets, daily range): BP systolic 106–114; BP diastolic 73–83
[2017-12-18] MEDS: PIPERACILLIN/TAZO/PMX 4.5GM 100 ML IV SCH (04:05)
[2017-12-18] MEDS: VANCOMYCIN 1,200 MG in SODIUM CHLORIDE 0.9% 250 ML IV SCH (04:51)
[2017-12-18] MEDS: METOPROLOL TARTRATE 25 MG TABLET PO SCH ×2 (06:08→17:49)
[2017-12-18] MEDS: ASPIRIN 81 MG TABLET EC PO SCH (06:09)
[2017-12-18 06:16] LABS: BASOPHILS # (AUTO) 0.02 x10^3/uL (0-0.1); BASOPHILS % (AUTO) 0 % (0-1); EOSINOPHILS # (AUTO) 0.07 x10^3/uL (0-0.4); EOSINOPHILS % (AUTO) 1 % (1-7); LYMPHOCYTES % (AUTO) 11 % (22-44); MD NO; MEAN CORPUSCULAR HEMOGLOBIN 28.2 pg (27.5-34.5); MEAN CORPUSCULAR HGB CONC 32.5 g/dL (33.2-36.2); MEAN CORPUSCULAR VOLUME 86.8 fL (81-97); MEAN PLATELET VOLUME 8.5 fL (7.4-10.4); MONOCYTES # (AUTO) 0.37 x10^3/uL (0.2-0.8); MONOCYTES % (AUTO) 6 % (2-9); NEUTROPHILS # (AUTO) 5.34 x10^3/uL (1.8-6.8); NEUTROPHILS % (AUTO) 82 % (42-75); PLATELET COUNT 157 x10^3/uL (130-400); RED BLOOD COUNT 4.28 x10^6/uL (4.38-5.82); RED CELL DISTRIBUTION WIDTH 18.5 % (9.4-14.8)
[2017-12-18 06:24] LABS: ANION GAP 8 mmol/L (5-15); CALCIUM 8.3 mg/dL (8.5-10.1); CHLORIDE 110 mmol/L (98-107); CREATININE 1.01 mg/dL (0.7-1.3)
[2017-12-18] MEDS ORDERED: CEFTRIAXONE 1,000 MG in SODIUM CHLORIDE 0.9% 50 ML IV SCH (08:30)
[2017-12-18] MEDS: PANTOPROZOLE 40MG TABLET PO SCH (09:46)
[2017-12-18] MEDS: LISINOPRIL 5 MG TABLET PO SCH (09:49)
[2017-12-18] MEDS: DOXYCYCLINE 100 MG in DEXTROSE 5% 250 ML IV SCH ×2 (10:14→20:19)
[2017-12-18] MEDS: ACETAMINOPHEN 325 MG TABLET PO PRN (17:48)
[2017-12-18] MEDS: ATORVASTATIN 40 MG TABLET PO SCH (20:18)
[2017-12-18] MEDS: ENOXAPARIN 40 MG/0.4 ML SQ SCH (20:19)
[2017-12-19 02:12] VITALS: BP 113/87
[2017-12-19 05:23] LABS: ALBUMIN 2.7 g/dL (3.4-5.0); ANION GAP 9 mmol/L (5-15); CALCIUM 8.4 mg/dL (8.5-10.1); CHLORIDE 108 mmol/L (98-107)
[2017-12-19 05:25] VITALS: BP 122/86
[2017-12-19 05:27] LABS: ALANINE AMINOTRANSFERASE 54 U/L (12-78); ALKALINE PHOSPHATASE 116 U/L (45-117); BASOPHILS # (AUTO) 0.01 x10^3/uL (0-0.1); BASOPHILS % (AUTO) 0 % (0-1); BILIRUBIN,TOTAL 1.8 mg/dL (0.2-1.0); CREATININE 0.87 mg/dL (0.7-1.3); EOSINOPHILS # (AUTO) 0.08 x10^3/uL (0-0.4); EOSINOPHILS % (AUTO) 2 % (1-7); LYMPHOCYTES % (AUTO) 15 % (22-44); MD NO; MEAN CORPUSCULAR HEMOGLOBIN 28.2 pg (27.5-34.5); MEAN CORPUSCULAR HGB CONC 32.6 g/dL (33.2-36.2); MEAN CORPUSCULAR VOLUME 86.5 fL (81-97); MEAN PLATELET VOLUME 8.9 fL (7.4-10.4); MONOCYTES % (AUTO) 6 % (2-9); NEUTROPHILS # (AUTO) 4.04 x10^3/uL (1.8-6.8); NEUTROPHILS % (AUTO) 77 % (42-75); PLATELET COUNT 173 x10^3/uL (130-400); RED BLOOD COUNT 4.33 x10^6/uL (4.38-5.82); RED CELL DISTRIBUTION WIDTH 18.4 % (9.4-14.8); TOTAL PROTEIN 6.2 g/dL (6.4-8.2)
[2017-12-19] MEDS: METOPROLOL TARTRATE 25 MG TABLET PO SCH ×2 (05:27→17:45)
[2017-12-19] MEDS: ASPIRIN 81 MG TABLET EC PO SCH (05:29)
[2017-12-19 08:07] VITALS: BP 119/85
[2017-12-19] MEDS: LISINOPRIL 5 MG TABLET PO SCH (08:42)
[2017-12-19] MEDS: PANTOPROZOLE 40MG TABLET PO SCH (08:42)
[2017-12-19] MEDS: AMOXICILLIN/CLAV 875-125MG TABLET PO SCH ×2 (08:42→20:39)
[2017-12-19] MEDS: DOXYCYCLINE 100MG TABLET PO SCH ×2 (08:43→20:45)
[2017-12-19] MEDS ORDERED: CEFTRIAXONE PMX 1GM/50ML 50 ML IV SCH (09:00)
[2017-12-19 15:18] VITALS: BP 103/71
[2017-12-19] MEDS ORDERED: MECLIZINE 12.5 MG TABLET PO PRN (15:30)
[2017-12-19 17:47] VITALS: BP 126/87
[2017-12-19] MEDS: ACETAMINOPHEN 325 MG TABLET PO PRN (18:26)
[2017-12-19 20:00] VITALS: BP 104/74
[2017-12-19] MEDS: ATORVASTATIN 40 MG TABLET PO SCH (20:37)
[2017-12-19] MEDS: ENOXAPARIN 40 MG/0.4 ML SQ SCH (20:39)
[2017-12-20 02:00] VITALS: BP 124/88
[2017-12-20] MEDS: ASPIRIN 81 MG TABLET EC PO SCH (06:08)
[2017-12-20] MEDS: METOPROLOL TARTRATE 25 MG TABLET PO SCH (06:09)
[2017-12-20] MEDS: LISINOPRIL 5 MG TABLET PO SCH (07:45)
[2017-12-20] MEDS: AMOXICILLIN/CLAV 875-125MG TABLET PO SCH (07:46)
[2017-12-20] MEDS: PANTOPROZOLE 40MG TABLET PO SCH (07:46)
[2017-12-20] MEDS: DOXYCYCLINE 100MG TABLET PO SCH (07:46)
[2017-12-20 09:28] VITALS: BP 121/85
[2017-12-20] MEDS ORDERED: DOXY100T PO (13:36)
[2017-12-20] MEDS ORDERED: AMOX1TAB12 PO (13:36)
[2017-12-20 14:10] VITALS: BP 109/75
== END 2017-12-20 16:22 | disposition home or self-care (01) | DRG 871 ==
LOC: ED 21:15 → SUATTDRO 21:28 → EDIP 21:41 → 5SO 21:55 → 3NW 12-19 17:44
PROVIDERS: ADMIT Hospitalist; ATTEND Hospitalist
DX: A41.9 Sepsis, unspecified organism (principal); I21.9 Acute myocardial infarction, unspecified; J15.9 Unspecified bacterial pneumonia; I24.8 Other forms of acute ischemic heart disease; J44.0 Chronic obstructive pulmonary disease with (acute) lower respiratory infection; J96.10 Chronic respiratory failure, unspecified whether with hypoxia or hypercapnia; I50.22 Chronic systolic (congestive) heart failure; D64.9 Anemia, unspecified; E83.39 Other disorders of phosphorus metabolism; E83.42 Hypomagnesemia; F41.9 Anxiety disorder, unspecified; G44.319 Acute post-traumatic headache, not intractable; I11.0 Hypertensive heart disease with heart failure; I25.10 Atherosclerotic heart disease of native coronary artery without angina pectoris; I25.2 Old myocardial infarction; I25.5 Ischemic cardiomyopathy; I44.7 Left bundle-branch block, unspecified; K21.9 Gastro-esophageal reflux disease without esophagitis; Z51.5 Encounter for palliative care; Z72.0 Tobacco use; Z91.14 Patient's other noncompliance with medication regimen; Z95.1 Presence of aortocoronary bypass graft
CPT/HCPCS: 36415; 70450; 71045; 71275; 80048; 80053; 80307; 81001; 82962; 83605; 83735; 83880; 84100; 84145; 84439; 84443; 84481; 84484; 85025; 87040; 87070; 87205; 90656; 93005; 93880; 94640; 96365; 96366; 99285; G0378; J0456; J0696; J1650; J1956; J2543; J3370; J3475; J7060; Q0162; Q9967; J7030; J7040; J7050